=== PATIENT | female | born 1970 | race Caucasian/White ===

== ENCOUNTER 2020-12-16 18:12 | Outpatient (CLI) | payer BC, OTHER, SELFPAY ==
--- NOTE | ~2020-12-16 | XR_ITS ---
EXAMINATION: XR chest 2V DATE: 12/16/2020 18:28 INDICATION: Chest tightness and COVID 19 TECHNIQUE: PA and lateral views of the chest are obtained. COMPARISON: 11/13/2015 FINDINGS: The lungs are free of acute opacities. There is no pleural effusion or pneumothorax. The ca rdiomediastinal silhouette is normal. The visualized bones and soft tissues are unremarkable. IMPRESSION: 1. No acute cardiopulmonary abnormality. Reviewed, dictated and finalized at location A. [employer]ANNER
== END 2020-12-16 18:13 | disposition home or self-care (01) ==
LOC: CHSIMG 18:16
PROVIDERS: PCP Internal Medicine; Visit Provider Internal Medicine
DX: R06.2 Wheezing (principal); U07.1 COVID-19
CPT/HCPCS: 71046

== ENCOUNTER 2022-10-05 11:17 | Outpatient (CLI) | payer BC, OTHER, SELFPAY ==
[2022-10-05 12:11] LABS: SARS-CoV-2 RNA PCR Negative (Negative)
[2022-10-05 12:54] LABS: Influenza A QL RT-PCR Negative (Negative); Influenza B QL RT-PCR Negative (Negative); RSV RNA, RT-PCR Negative (Negative)
== END 2022-10-05 11:18 | disposition home or self-care (01) ==
LOC: CHSLAB 11:21
PROVIDERS: PCP Internal Medicine; Visit Provider Internal Medicine
DX: J06.9 Acute upper respiratory infection, unspecified (principal); Z20.822 Contact with and (suspected) exposure to COVID-19
CPT/HCPCS: 87502; 87634; U0003; U0005

== ENCOUNTER 2022-12-27 08:15 | Outpatient (CLI) | payer BC, OTHER, SELFPAY ==
[2022-12-27 08:12] VITALS: PULSE 102; O2SAT 99
[2022-12-27 08:18] VITALS: PULSE 102; O2SAT 99
--- NOTE | 2022-12-27 08:58 | HOMEO2EVAL ---
Evaluation was performed at [facility] Home Oxygen Evaluation RC: Home Oxygen (O2) Evaluation Start: 12/27/22 08:53 Freq: Status: Active Protocol: RPE Activity Type Activity Date Activity User E-sign Co-sign Detail Recorded Client Recorded Date Recorded By Document 12/27/22 08:12 KAYODE [id number] 12/27/22 08:55 KAB Document 12/27/22 08:18 KAB [id number] 12/27/22 08:58 KAB 12/27/22 12/27/22 08:12 08:18 Home O2 Evaluation [Oxygen] -Test Phase Resting Exercise -Oxygen Delivery Room Air [Pulse Oximetry] -Pulse Oximetry (90-100 %) 99 99 [Pulse Rate] -Pulse Rate (60-100 beats/min) 102 H 102 H [Evaluation] -Activity Tolerance Excellent Excellent [Exercise] -Ambulation Distance (feet) 680 -Ambulation Distance (meters) 207.25 [Comments] -Home Oxygen Evaluation Comments Patient walked bout 680 feet. Not noticeable complications.
--- NOTE | 2023-01-09 11:06 | WPDPFTINT ---
PFT Procedure Performed PFT Procedure Performed Spirometry with Pre/Post Bronchodilator Plethysmography (Lung Vol) Diffusing Cap (DLCO) Flow Vol Loop PFT Interpretation DOS: 12/27/2022 REQUESTING: Gray Anguiano APRN REASON FOR TESTING: asthma, history of cancer PULMONARY FUNCTION TESTS Results are reliable and reproducible. Spirometry: Pre-bronchodilator FEV1 is 2.09 L, 83% predicted, normal. Pre bronchodilator FVC is 3.11 L, 101%, normal. FEV1/FVC is 67%, consistent with mild airflow obstruction. There is no significant change after bronchodilator administration. The FEV1 decreases by 2%. The LDM74-72% is 46% predicted, no change with bronchodilator. Lung volumes: Total lung capacity is 4.57 L, 96%, normal. Residual volume is 1.35 L, 81%, normal. RV/TLC is 30%, normal. Raw is 176%. Diffusion: DLCO is 18.6, 91%, normal. DLCO/VA is 4.53, 110%, normal. Flow volume loop: Flow volume loop shows mild coving of the expiratory limb. IMPRESSION: This full pulmonary function test shows a mild obstructive ventilatory impairment which is demonstrated with a decrease in the FEV1/FVC ratio, no change with bronchodilator, normal lung volumes and normal diffusion. Lack of response to bronchodilator should not preclude use if clinically indicated. There are no prior studies for comparison. Caitlin Nicole MD
== END 2022-12-27 08:16 | disposition home or self-care (01) ==
LOC: CHSCARD 08:16
PROVIDERS: PCP Internal Medicine; Visit Provider Nurse Practitioner Family
DX: J45.909 Unspecified asthma, uncomplicated (principal); Z85.118 Personal history of other malignant neoplasm of bronchus and lung
CPT/HCPCS: 94060; 94618; 94726; 94729

== ENCOUNTER 2023-10-09 07:31 | Outpatient (CLI) | payer BC, OTHER, SELFPAY ==
--- NOTE | ~2023-10-09 | US_ITS ---
Ultrasound of the left axilla CLINICAL HISTORY: Left axillary mass TECHNIQUE: Sonographic imaging in the left axilla was performed. FINDINGS: No solid or cystic lesion identified in the left axilla at the area of clinical concern. No sonographic abnormality seen in the region scanned. IMPRESSION: No sonographic correlate seen at the area of clinical concern in the left axilla. Reviewed, dictated and finalized at location M. HAND IMPRESSION: No sonographic correlate seen at the area of clinical concern in the left axill a.
== END 2023-10-09 07:32 | disposition home or self-care (01) ==
LOC: CHSIMG 07:32
PROVIDERS: PCP Internal Medicine; Visit Provider Internal Medicine
DX: R22.2 Localized swelling, mass and lump, trunk (principal)
CPT/HCPCS: 76882

== ENCOUNTER 2025-01-31 02:43 | Day surgery (SDC) | payer OTHER, SELFPAY ==
[2025-01-20 14:21] VITALS: BMI 25.0
--- OUTSIDE RECORDS SUMMARY | 2025-01-31 02:46 | XMS_ITS | Clinical Summary ---
Author Organization [facility] Address [address] [place] [address] Care Team Providers Care Bricklayer Helper Name Role Phone Unavailable Primary Care Provider Unavailabl e Social History Tobacco Use Types Packs/Day Years Used Date Smoking Tobacco: Never Assessed Comments Unknown Sex and Gender Information Value Date Recorded Sex Assigned at Not on file Legal Sex Female 8:58 PM CDT Gender Identity Not on file Sexual Orientation Not on file Last Filed Vital Signs Vital Sign Reading Time Taken Comments Blood Pressure 122/60 12/01/2015 2:03 PM [employer] Pulse 82 12/01/2015 2:03 PM [employer] Temperature - - Respiratory Rate - - Oxygen Saturation - - Inhaled Oxygen Concentration - - Weight 63.5 kg (140 lb) 12/01/2015 2:03 PM [employer] Height 160 cm (5' 3 ) 12/01/2015 2:03 PM [employer] Body Mass Index 24.8 12/01/2015 2:03 PM [employer] Plan of Treatment Health Maintenance Due Date Last Done Comments Cervical Cancer Screening Pa p Smear (Age 30 to 64) Every 3 Years 1972 Colorectal Cancer Screening Colonoscopy (10 Years) 1972 Annual Physical 1975 Hepatitis C 1990 DTaP, Tdap and Td Vaccines ( 1 - Tdap) 1991 Hepatitis B Vaccines (1 of 3 - 19+ 3-dose series) 1991 Cervical Cancer Screening Pa p with HPV Testing (Age 30 to 64) Every 5 Years 2002 Cervical Cancer Screening with HPV 2002 Mammogram Screening 2012 Zoster Vaccines (1 of 2) 2022 COVID-19 Vaccine ( - 2023-2 5 season) 2024 Influenza Adult (#1) 2024 08/27/2015 Pneumococcal Vaccine: Pediat rics (0 to 5 Years) and At-Risk Patients (6 to 64 Years) Aged Out 1972 No longer eligi ble based on patient's age to complete this topic Meningococcal B Vaccine Aged Out No l onger eligible based on patient's age to complete this topic Meningococcal Vaccine Aged Out No jeanne saida eligible based on patient's age to complete this topic RSV Immunizations Under 20 Months Aged Out No longer eligible based on patient's age to complete this topic
[2025-01-31 10:49] VITALS: BP 146/84; PULSE 102; RESP 18; TEMP 36.3; O2SAT 100
[2025-01-31 10:50] VITALS: BMI 24.5
[2025-01-31] MEDS: LACTATED RINGERS 1,000 ML 150 ML IV CONT (10:59)
--- NOTE | 2025-01-31 11:08 | P.PNAN_ITS ---
Anes - Initial Pre Proc Eval Procedure: Operation Date: 01/31/25 12:00 Proposed Procedures p Screening Colonoscopy - Phoenix Dillard MD Date/Time: 01/31/25 11:08 Surgeon: Phoenix Dillard MD Pre Op Diagnosis: malignant neoplasm of colon Patient Data Age: 54 Gender: F Height: 1.6 m Weight: 62.9 kg Last Vital Signs Temp 97.4 F L 01/31/25 10:49 Pulse 102 H 01/31/25 10:49 Resp 18 01/31/25 10:49 BP 146/84 H 01/31/25 10:49 Pulse Ox 100 01/31/25 10:49 O2 Del Method Room Air 01/31/25 10:49 Allergies Allergy/AdvReac Type Severity Reaction Status Date / Time duloxetine AdvReac Unknown Nausea Verified 01/31/25 10:47 Home Medications ?Medication ?Instructions ?Recorded ?Confirmed ?Type amoxicillin 250 mg capsule 250 mg PO DAILY 11/02/22 01/20/25 History fluoxetine 10 mg capsule 10 mg PO DAILY 11/02/22 01/31/25 History montelukast 10 mg tablet 10 mg PO PRN 11/02/22 01/31/25 History nortriptyline 25 mg capsule 25 mg PO QHS 11/02/22 01/31/25 History albuterol sulfate 90 mcg/actuation 1 - 2 inh inhalation Q4-6H PRN 07/05/24 01/20/25 Rx aerosol inhaler shortness of breath or wheezing #8.5 grams Patient hx anesthesia problems: none Family hx anesthesia problems: none Results Review: All pre-operative results and documents have been reviewed as part of the pre- operative evaluation. [facility] Past Medical History Medical History History of lung cancer s/p L lobectomy 2000 Acne on chronic amoxicillin Migraine headache Anxiety Surgical History Surgical History History of partial hysterectomy 2012 d/t fibroid History of lobectomy of lung Left 2000 Family History Family History Father Heart disease Hypertension Hx of CABG Mother , Leukemia Leukemia Heart disease s/p stent HLD (hyperlipidemia) PUD (peptic ulcer disease) History of ITP Fibromyalgia Sibling No problems noted. 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 Asthma, hx of lung ca, s/p LLlobectomy approx 1999, PFTs reviewed w mild obs disease. Informed Consent: The patient's anesthetic plan and its attendant risks and benefits were discussed with the patient/family/POA. Questions were solicited and answers provided to the satisfaction of the patient/family/POA.
--- NOTE | 2025-01-31 11:30 | PM.HPGS ---
History of Present Illness History of Present Illness Consent: Risks, benefits, and alternatives have been discussed and questions answered. Patient agrees to proceed with procedure. Chief complaint: malignant neoplasm of colon Narrative: Leann Caraballo is a 54 year old female here for first screening colonoscopy Review of Systems Review of Systems: All systems reviewed & are unremarkable except as noted in HPI and below PMFSH Past Medical History Medical History (Updated 01/31/25 @ 11:31 by Phoenix Dillard MD) Colon cancer screening History of lung cancer s/p L lobectomy 2000 Acne on chronic amoxicillin Migraine headache Anxiety Surgical History Surgical History History of partial hysterectomy 2012 d/t fibroid History of lobectomy of lung Left 2000 Family History Family History Father Heart disease Hypertension Hx of CABG Mother , Leukemia Leukemia Heart disease s/p stent HLD (hyperlipidemia) PUD (peptic ulcer disease) History of ITP Fibromyalgia Sibling No problems noted. 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 Meds Home Medications and Allergies Home Medications ?Medication ?Instructions ?Recorded ?Confirmed ?Type amoxicillin 250 mg capsule 250 mg PO DAILY 11/02/22 01/20/25 History fluoxetine 10 mg capsule 10 mg PO DAILY 11/02/22 01/31/25 History montelukast 10 mg tablet 10 mg PO PRN 11/02/22 01/31/25 History nortriptyline 25 mg capsule 25 mg PO QHS 11/02/22 01/31/25 History albuterol sulfate 90 mcg/actuation 1 - 2 inh inhalation Q4-6H PRN 07/05/24 01/20/25 Rx aerosol inhaler shortness of breath or wheezing #8.5 grams Allergies Allergy/AdvReac Type Severity Reaction Status Date / Time duloxetine AdvReac Unknown Nausea Verified 01/31/25 10:47 Vital Signs Vital Signs - 24 hr 01/31/25 10:49 Temperature 97.4 F L Pulse Rate 102 H Respiratory Rate 18 Blood Pressure 146/84 H Pulse Oximetry 100 Oxygen Delivery Room Air Exam Const: General: comfortable and no acute distress HENMT: Face/Nose/Sinus: Normal nares present Eyes: General: appearance normal, both eyes and all related structures Neck: Neck: no JVD Resp: Auscultation: clear to auscultation bilaterally Cardio: Rate: regular rate Rhythm: regular rhythm GI: Inspection: non-distended GI Palp: Yes Soft to palpation Skin: General skin exam: normal color Neuro: General: gait normal Speech: normal speech Extrem: General: normal to inspection Psych: Mental Status: mental status grossly normal Assessment and Plan Assessment and plan (1) Colon cancer screening: Code(s): Z12.11 - Encounter for screening for malignant neoplasm of colon Status: Acute Assessment and Plan: colonoscopy
[2025-01-31 11:44] VITALS: BP 121/72; PULSE 90; RESP 18; O2SAT 100
[2025-01-31 11:54] VITALS: BP 123/79; PULSE 92; RESP 16; O2SAT 100
[2025-01-31 12:04] VITALS: BP 123/79; PULSE 94; RESP 16; O2SAT 100
== END 2025-01-31 12:12 | disposition home or self-care (01) ==
PROVIDERS: PCP Internal Medicine; Visit Provider Internal Medicine Gastroenterology
PROC: 0DJD8ZZ Inspection of Lower Intestinal Tract, Via Natural or Artificial Opening Endoscopic (ICD-10-PCS; CPT 45378; principal; 2025-01-31 12:00)
DX: Z12.11 Encounter for screening for malignant neoplasm of colon (principal); K64.8 Other hemorrhoids; F41.9 Anxiety disorder, unspecified; Z79.51 Long term (current) use of inhaled steroids; Z98.890 Other specified postprocedural states; Z90.2 Acquired absence of lung [part of]; Z85.118 Personal history of other malignant neoplasm of bronchus and lung; Z80.6 Family history of leukemia; Z82.49 Family history of ischemic heart disease and other diseases of the circulatory system
CPT/HCPCS: 45378; J2704; J7120